=== PATIENT | female | born 1985 | race Caucasian/White ===

== ENCOUNTER 2016-11-12 20:20 | Emergency (ER) | payer MEDICAID ==
--- NOTE | 2016-11-12 20:47 | ERNOTE ---
Lower Extremity HPI - Narrative Date of Service: 11/12/16 - General Lower Extremities Pain: foot: right Time Seen by Provider: 11/12/16 20:26 Source: patient Exam Limitations: no limitations - Immun/Allergies/Home Medications Allergies/Adverse Reactions: Allergies Allergy/AdvReac Type Severity Reaction Status Date / Time Cephalosporins Allergy Severe Hives Verified 09/25/16 13:00 Penicillins Allergy Severe Hives Verified 09/25/16 13:00 Home Medications: HOME MEDICATIONS Albuterol Sulfate [Ventolin Hfa] 2 puff IH Q4H PRN 03/22/14 [Last Taken Unknown] Loratadine [Loratadine (Claritin)] 10 mg PO DAILY 03/22/14 [Last Taken Unknown] Montelukast Sodium [Singulair] 10 mg PO DAILY 03/22/14 [Last Taken Unknown] Levothyroxine Sodium [Synthroid] 88 mcg PO DAILY 09/25/16 [Last Taken Unknown] Metformin HCl [Metformin HCl ER] 500 mg PO DAILY 09/25/16 [Last Taken Unknown] Naproxen [Naprosyn] 500 mg PO BID PRN #60 tab 09/25/16 [Last Taken Unknown] Sertraline HCl [Zoloft] 50 mg PO DAILY 09/25/16 [Last Taken Unknown] oxyCODONE HCL/ACETAMINOPHEN [Percocet 5 MG/325 MG] 1 tab PO QPM PRN #5 tab 11/12 [Last Taken Unknown] - History of Present Illness Narrative: Pt. comes in with c/o r lateral foot pain since three days ago when she stepped in a mole hole in her yard. Pt. has been rona wrapping foot, and using Ibuprofen and naproxen for pain without relief. pt. denies any numbness or tingling Review of Systems - Review of Systems Constitutional: Present: no symptoms reported. Absent: recent illness, fever, chills, malaise EYE: Present: no symptoms reported ENT: Present: no symptoms reported Respiratory: Present: no symptoms reported Cardiology: Present: no symptoms reported Gastrointestinal/Abdominal: Present: no symptoms reported Genitourinary: Present: no symptoms reported Musculoskeletal: Present: no symptoms reported Skin: Present: no symptoms reported Neurological: Present: no symptoms reported. Absent: headache, dizziness/light- headedness, numbness, tingling All Other Systems: All systems neg except as marked - Patient's Past Medical History Patient History - Medical: Anemia, Anxiety, Depression, Kidney stone, UTI'S Patient History - Cancer: No Hx of Cancer Patient History - Surgical Procedures: Cholecystectomy, Tubal Ligation, T & A, Other - Social History Living Situations: alone Physical Exam - Physical Exam General Appearance: Present: wd/wn, alert, no apparent distress Eye Exam: Normal inspection: bilateral, PERRL: bilateral, EOMI: bilateral Ears, Nose, Throat: Present: normal ENT inspection, hearing grossly normal, normal pharynx Neck: Present: normal inspection, nontender. Absent: lymphadenopathy (R), lymphadenopathy (L) Respiratory: Present: no respiratory distress, normal breath sounds, no accessory muscle use, chest nontender, lungs clear Cardiovascular/Chest: Present: regular rate, rhythm, no murmur, normal peripheral pulses Gastrointestinal/Abdominal: Present: normal bowel sounds, nontender, nondistended, soft, no organomegaly Back Exam: Present: normal inspection, normal range of motion, no CVA tenderness , no vertebral tenderness Extremity Exam: Present: other - lateral foot tenderness Neurological Exam: Present: alert, oriented, normal mood/affect, no motor/ sensory deficits, 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 Absent: pallor, skin rash ED Progress - Vital Signs Patient's Vital Signs:: I have reviewed the patient's vital signs. Vital Signs: Vital Signs 11/12/16 20:25 Temperature 36.8 C Pulse Rate 109 H Respiratory 16 Rate Blood Pressure 135/96 O2 Sat by Pulse 97 Oximetry - Progress/Reassessment Chief Complaint: Lower Extremity Pain/ Injury Departure Clinical Impression: Right foot sprain Qualifiers: Encounter type: initial encounter Qualified Code(s): S93.601A - Unspecified sprain of right foot, initial encounter - Departure Disposition: Home self-care Condition: Good Instructions: Foot Sprain Additional Instructions: Please keep rona wrapped for two weeks, may remove for showers, please keep elevated as much as possible. No walking without crutches for two weeks may occasionally move ankle but do not drive using this foot. After two weeks if not improved please follow up with Dr Potter to evaluate for tear. No narcotic pain medications while you are driving or taking care of kids. Please continue anti-inflammatories during the daytime. Referrals: Eliot Osorio MD [Primary Care Provider] - Prescriptions: oxyCODONE HCL/ACETAMINOPHEN [Percocet 5 MG/325 MG] 1 tab PO QPM PRN #5 tab PRN Reason: Pain
[2016-11-12] MEDS ORDERED: oxyCODONE HCL/ACETAMINOPHEN 1 TAB TABLET PO ONE (21:30)
[2016-11-12] MEDS ORDERED: oxyCODONE HCL/ACETAMINOPHEN 1 TAB TABLET ONE (21:51)
[2016-11-12 22:17] VITALS: BP 138/88
== END 2016-11-12 21:50 | disposition home or self-care (01) ==
LOC: ER 20:20
DX: S93.601A Unspecified sprain of right foot, initial encounter (principal); W17.2XXA Fall into hole, initial encounter; Y92.007 Garden or yard of unspecified non-institutional (private) residence as the place of occurrence of the external cause; Z87.440 Personal history of urinary (tract) infections; Z87.442 Personal history of urinary calculi; F41.9 Anxiety disorder, unspecified

== ENCOUNTER 2017-02-11 14:05 | Emergency (ER) | payer MEDICAID ==
[2017-02-11 15:19] LABS: Urine Bilirubin Negative (NEGATIVE); Urine Blood 250 /ul (NEGATIVE); Urine Ketone Negative (NEGATIVE); Urine Nitrite Negative (NEGATIVE); Urine Protein Negative (NEGATIVE); Urine Urobilinogen Normal (NORMAL)
[2017-02-11 15:20] LABS: Urine Appearance Clear; Urine Bacteria None Seen; Urine Color Yellow; Urine WBC None Seen /hpf (0-5)
[2017-02-11] MEDS ORDERED: KETOROLAC TROMETHAMINE 60 MG/2 ML VIAL IM ONE ×2 (16:57→17:16)
--- NOTE | 2017-02-11 17:00 | ERNOTE ---
ER Female HPI Date of Service: 02/11/17 Stated Complaint: UTI Presenting Symptoms: other - Urinary frequency/urgency Time Seen by Provider: 02/11/17 16:42 Source: patient, RN notes reviewed Exam Limitations: no limitations Immunizations: IMMUNIZATION HX Immunizations Up to Date Yes History of Influenza Vaccine Yes Hx Pneumococcal Vaccination No Allergies/Adverse Reactions: Allergies Cephalosporins Allergy (Severe, Verified 09/25/16 13:00) Hives Penicillins Allergy (Severe, Verified 09/25/16 13:00) Hives Home Medications: HOME MEDICATIONS Albuterol Sulfate [Ventolin Hfa] 2 puff IH Q4H PRN 03/22/14 [Last Taken Unknown] Loratadine [Loratadine (Claritin)] 10 mg PO DAILY 03/22/14 [Last Taken Unknown] Montelukast Sodium [Singulair] 10 mg PO DAILY 03/22/14 [Last Taken Unknown] Levothyroxine Sodium [Synthroid] 88 mcg PO DAILY 09/25/16 [Last Taken Unknown] Sertraline HCl [Zoloft] 50 mg PO DAILY 09/25/16 [Last Taken Unknown] metFORMIN HCL [Metformin HCl ER] 500 mg PO DAILY 09/25/16 [Last Taken Unknown] HYDROcodone/ACETAMINOPHEN [Economy 5-325] 1 - 2 tab PO Q6H PRN #20 tab 02/11/17 [ Last Taken Unknown] Ondansetron [Zofran Odt] 8 mg PO Q8H PRN #12 tab 02/11/17 [Last Taken Unknown] Tamsulosin HCl [Flomax] 0.4 mg PO DAILY #14 cap.sr.24h 02/11/17 [Last Taken Unknown] - History of Present Illness Narrative: 31 y/o female ambulatory to the ED for urinary symptoms that have been ongoing for about a month. She was initially seen and treated for a UTI in the walk-in clinic. Her culture at that time grew greater than 3 organisms. Her symptoms continued and she saw her PCP. She was then treated for bacterial vaginitis with Flagyl. She reports urinary frequency and urgency. She has an appointment with urology last week. Onset Location: Present: suprapubic, urethral Radiation: Present: none Associated Symptoms: Present: fever/chills, nausea, urinary frequency, low back pain. Absent: vomiting, abdominal pain, dysuria Prior Treatment: Present: recently seen, treated by physician. Absent: currently on antibiotics Review of Systems - Review of Systems Constitutional: Present: See HPI EYE: Present: no symptoms reported ENT: Present: no symptoms reported Respiratory: Present: no symptoms reported Cardiology: Present: no symptoms reported Gastrointestinal/Abdominal: Present: See HPI Genitourinary: Present: frequency, pain, dysuria. Absent: hematuria, decreased urinary output, discharge, other - vaginal itching/irritation Musculoskeletal: Present: back pain, muscle pain Skin: Absent: rash, lesions Neurological: Absent: weakness, numbness, tingling Endocrine: Present: no symptoms reported Hematologic/Lymphatic: Present: no symptoms reported Psych: Present: no symptoms reported - Patient's Past Medical History Patient History - Medical: Anemia, Anxiety, Depression, Kidney stone, Obesity, UTI'S Patient History - Cardiac/Respiratory: Asthma Patient History - Cancer: No Hx of Cancer Patient History - Surgical Procedures: Cholecystectomy, Tubal Ligation, T & A, Other LMP (females 10-50): 1 month - Social History Living Situations: home Smoking Status: Current some day smoker Alcohol Use: none Drug Use: none - Immunizations Immunizations Up to Date: Yes Hx Pneumococcal Vaccination: No History of Influenza Vaccine: Yes Physical Exam - Physical Exam General Appearance: Present: alert, no apparent distress, obese Neck: Present: normal inspection, nontender, supple Respiratory: Present: no respiratory distress, normal breath sounds, no accessory muscle use, lungs clear Cardiovascular/Chest: Present: regular rate, rhythm, no murmur Gastrointestinal/Abdominal: Present: normal bowel sounds, nontender, soft, distended - obese Back Exam: Present: no vertebral tenderness, CVA tenderness (R). Absent: CVA tenderness (L) Extremity Exam: Present: normal inspection Neurological Exam: Present: alert, oriented, normal mood/affect, no motor/ sensory deficits Skin Exam: Present: normal color, warm/dry ED Progress - Results and Orders Patient's Lab Results:: I have reviewed the patient's lab results. - Vital Signs Patient's Vital Signs:: I have reviewed the patient's vital signs. Vital Signs: Vital Signs 02/11/17 14:24 Temperature 36.8 C Pulse Rate 94 Respiratory 12 Rate Blood Pressure 147/104 O2 Sat by Pulse 98 Oximetry - CT/Ultrasound CT/Ultrasound Narrative: CT abd/pelvis noncontrast: 1. PROMINENT RIGHT LOBE THE LIVER; SIMÓN'S LOBE VERSUS HEPATOMEGALY. 2. STATUS POST CHOLECYSTECTOMY. 3. NO EVIDENCE FOR NONOBSTRUCTING RENAL CALCULI. 4. MILD LEFT SIDED HYDRONEPHROSIS EXTENDING DOWN TO A 4.4 MM CALCULUS IN THE LEFT URETEROVESICULAR JUNCTION. Electronically signed by Bowen Salazar M.D.. - Progress/Reassessment Chief Complaint: Genitourinary Problem Progress:: Improved Plan - Plan Plan: Some improvement in pain with Toradol. Has f/u scheduled with urology next week but discussed being seen sooner if needed. Departure Clinical Impression: Ureteral calculus, left - Departure Disposition: Home Follow Up Needed Condition: Good Instructions: Kidney Stones, [id number] Additional Instructions: Push fluids Strain urine See urology as scheduled - or contact them if symptoms worsen or have not improved by Thursday Referrals: Abdifatah Cardoza MD [Associate] - Prescriptions: HYDROcodone/ACETAMINOPHEN [Economy 5-325] 1 - 2 tab PO Q6H PRN #20 tab PRN Reason: Pain Ondansetron [Zofran Odt] 8 mg PO Q8H PRN #12 tab PRN Reason: Nausea Tamsulosin HCl [Flomax] 0.4 mg PO DAILY #14 cap.sr.24h
[2017-02-11 18:25] VITALS: BP 126/87
== END 2017-02-11 19:18 | disposition home or self-care (01) ==
LOC: ER 14:05
DX: N20.1 Calculus of ureter (principal); Z87.442 Personal history of urinary calculi; Z72.0 Tobacco use; F41.8 Other specified anxiety disorders

== ENCOUNTER 2017-05-14 12:10 | Emergency (ER) | payer MEDICAID ==
[2017-05-14] MEDS ORDERED: KETOROLAC TROMETHAMINE 60 MG/2 ML VIAL IM ONE ×2 (13:02→13:11)
[2017-05-14] MEDS ORDERED: ORPHENADRINE CITRATE 30 MG/ML VIAL IM ONE (13:02)
[2017-05-14] MEDS ORDERED: ORPHENADRINE CITRATE 30 MG/ML VIAL ONE (13:11)
--- NOTE | 2017-05-14 13:12 | ERNOTE ---
Back Pain ER HPI Date of Service: 05/14/17 Presenting Symptoms: injury/pain to back, hx chronic back pain Time Seen by Provider: 05/14/17 12:53 Source: patient Exam Limitations: no limitations Immunizations: IMMUNIZATION HX Immunizations Up to Date Yes History of Influenza Vaccine No Hx Pneumococcal Vaccination No Allergies/Adverse Reactions: Allergies Cephalosporins Allergy (Severe, Verified 05/14/17 12:29) Hives Penicillins Allergy (Severe, Verified 05/14/17 12:29) Hives Home Medications: HOME MEDICATIONS Albuterol Sulfate [Ventolin Hfa] 2 puff IH Q4H PRN 03/22/14 [Last Taken Unknown] Loratadine [Loratadine (Claritin)] 10 mg PO DAILY 03/22/14 [Last Taken Unknown] Montelukast Sodium [Singulair] 10 mg PO DAILY 03/22/14 [Last Taken Unknown] Levothyroxine Sodium [Synthroid] 88 mcg PO DAILY 09/25/16 [Last Taken Unknown] Sertraline HCl [Zoloft] 50 mg PO DAILY 09/25/16 [Last Taken Unknown] metFORMIN HCL [Metformin HCl ER] 500 mg PO DAILY 09/25/16 [Last Taken Unknown] HYDROcodone/ACETAMINOPHEN [Elizabeth 5-325] 1 - 2 tab PO Q6H PRN #20 tab 02/11/17 [ Last Taken Unknown] Ondansetron [Zofran Odt] 8 mg PO Q8H PRN #12 tab 02/11/17 [Last Taken Unknown] Tamsulosin HCl [Flomax] 0.4 mg PO DAILY #14 cap.sr.24h 02/11/17 [Last Taken Unknown] Cyclobenzaprine HCl [Flexeril] 10 mg PO TID PRN #30 tab 05/14/17 [Last Taken Unknown] Naproxen [Naprosyn] 500 mg PO BID PRN #60 tab 05/14/17 [Last Taken Unknown] Narrative: Pt. 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 Pt. denies any SOB, CP, NVD, fever, recent illness, alleviating factors, or prehospital treatment. Pt. states ath movement exacerbates felicia pain and she has had similar symptoms in the past when she was diagnosed with a bulging disc. Review of Systems - Review of Systems Constitutional: Present: no symptoms reported. Absent: recent illness, fever, chills, weakness, fatigue, malaise EYE: Present: no symptoms reported ENT: Present: no symptoms reported Respiratory: Present: no symptoms reported. Absent: shortness of breath, cough , wheezing Cardiology: Present: no symptoms reported. Absent: chest pain, palpitations, edema Gastrointestinal/Abdominal: Present: no symptoms reported Genitourinary: Present: no symptoms reported Musculoskeletal: Present: back pain. Absent: joint pain Skin: Present: no symptoms reported. Absent: rash, change in color Neurological: Present: no symptoms reported. Absent: headache, dizziness/light- headedness, weakness, numbness All Other Systems: All systems neg except as marked - Patient's Past Medical History Patient History - Medical: Anemia, Anxiety, Depression, Kidney stone, Obesity, UTI'S Patient History - Cardiac/Respiratory: Asthma Patient History - Cancer: No Hx of Cancer Patient History - Surgical Procedures: Cholecystectomy, Tubal Ligation, T & A, Other Patient History - Other: None LMP (females 10-50): 3 weeks - Social History Living Situations: home Psych History: Hx of Anxiety, Hx of Depression Smoking Status: Current some day smoker Alcohol Use: none Drug Use: none - Immunizations Immunizations Up to Date: Yes Hx Pneumococcal Vaccination: No History of Influenza Vaccine: No Physical Exam - Physical Exam General Appearance: Present: wd/wn, alert, no apparent distress Eye Exam: Normal inspection: bilateral, PERRL: bilateral, EOMI: bilateral Neck: Present: normal inspection, nontender, full range of motion. 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 Absent: pallor, skin rash ED Progress - Vital Signs Patient's Vital Signs:: I have reviewed the patient's vital signs. Vital Signs: Vital Signs 05/14/17 12:26 Temperature 36.8 C Pulse Rate 90 Respiratory 16 Rate Blood Pressure 129/80 O2 Sat by Pulse 100 Oximetry - X-Ray X-Ray #1 X-Ray: thoracic Interpretation: Interp. by me X-ray Comments: multilevel DDD with endplate spurring X-Ray #2 X-Ray: lumbosacral Interpretation: Interp. by me X-ray Comments: multilevel DDD with endplate spurring - Progress/Reassessment Chief Complaint: Back Pain Departure Clinical Impression: Thoracolumbar back pain Degenerative disc disease Qualifiers: Spinal region: thoracolumbar Qualified Code(s): M51.35 - Other intervertebral disc degeneration, thoracolumbar region - Departure Disposition: Home self-care Condition: Good Instructions: Thoracic Strain, [id number], Back Pain, Adult, Back Injury Prevention Additional Instructions: Please follow up with primary provider in 2-3 days as you likely need further imaging and possibly injections. Also may see chiropractor. Please rest and use heat on back and take mediactions as prescribed. Prescriptions: Cyclobenzaprine HCl [Flexeril] 10 mg PO TID PRN #30 tab PRN Reason: MUSCLE SPASMS Naproxen [Naprosyn] 500 mg PO BID PRN #60 tab PRN Reason: Pain
[2017-05-14 15:29] VITALS: BP 128/71
== END 2017-05-14 14:21 | disposition home or self-care (01) ==
LOC: ER 12:10
DX: M51.35 Other intervertebral disc degeneration, thoracolumbar region (principal); F17.200 Nicotine dependence, unspecified, uncomplicated; X50.1XXA Overexertion from prolonged static or awkward postures, initial encounter

== ENCOUNTER 2017-05-30 18:38 | Emergency (ER) | payer MEDICAID ==
--- OUTSIDE RECORDS SUMMARY | 2017-05-30 18:58 | XMS REPORT | Summary of Care ---
:1985 Author Organization [facility] Care Team Providers Name Role Phone Eliot Osorio Primary Care Physician Encounter Date(s): 02/13/17 - 02/13/17 [facility] [address] [place], [place] [id number] Discharge Disposition: Discharged to Home or Self Care Attending Physician: Abdifatah Cardoza MD Admitting Physician: Abdifatah Cardoza MD Vital Signs No data available for this section Problem List Condition Effective Dates Status Health Status Informant Nephrolithiasis(Confirmed) Active Allergies, Adverse Reactions, Alerts Substance Reaction Severity Status cephalosporins hives Active penicillins hives Active Medications albuterol HFA puff(s), Inhale, QID, 0 Refill(s), Start Date: 10/21/16 8:34:00 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 Start Date: 10/21/16 Status: Orderedlevothyroxine 88 mcg (0.088 mg) oral tablet 1 tab(s), Oral, Daily, # 30 tab(s), 0 Refill(s), Start Date: 10/21/16 8:35:00 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 Start Date: 10/21/16 Status: Orderedloratadine 10 mg oral tablet 1 tab(s), Oral, Daily, # 30 tab(s), 0 Refill(s), Start Date: 10/21/16 8:34:00 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 Start Date: 10/21/16 Status: OrderedmetFORMIN 500 mg oral tablet 1 tab(s), Oral, BID, # 60 tab(s), 0 Refill(s), Start Date: 10/21/16 8:35:00 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 Start Date: 10/21/16 Status: Orderedmontelukast 10 mg oral tablet 1 tab(s), Oral, qPM, # 30 tab(s), 0 Refill(s), Start Date: 10/21/16 8:34:00 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 Start Date: 10/21/16 Status: Orderednaproxen 500 mg oral tablet 1 tab(s), Oral, BID, # 60 tab(s), 0 Refill(s), Start Date: 10/21/16 8:35:00 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 Start Date: 10/21/16 Status: Orderedsertraline 50 mg oral tablet 1 tab(s), Oral, Daily, # 30 tab(s), 0 Refill(s), Start Date: 10/21/16 8:35:00 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
--- NOTE | 2017-05-30 19:07 | ERNOTE ---
Medical Problem HPI - Narrative Date of Service: 05/30/17 - General Chief Complaint: Neck Pain/Injury Time Seen by Provider: 05/30/17 18:49 Source: patient, RN notes reviewed Exam Limitations: no limitations - Immun/Allergies/Home Medications Immunizations: IMMUNIZATION HX Immunizations Up to Date Yes History of Influenza Vaccine Yes Hx Pneumococcal Vaccination No Allergies/Adverse Reactions: Allergies Cephalosporins Allergy (Severe, Verified 05/14/17 12:29) Hives Penicillins Allergy (Severe, Verified 05/14/17 12:29) Hives Home Medications: HOME MEDICATIONS Albuterol Sulfate [Ventolin Hfa] 2 puff IH Q4H PRN 03/22/14 [Last Taken Unknown] Loratadine [Loratadine (Claritin)] 10 mg PO DAILY 03/22/14 [Last Taken Unknown] Levothyroxine Sodium [Synthroid] 88 mcg PO DAILY 09/25/16 [Last Taken Unknown] Sertraline HCl [Zoloft] 50 mg PO DAILY 09/25/16 [Last Taken Unknown] metFORMIN HCL [Metformin HCl ER] 500 mg PO DAILY 09/25/16 [Last Taken Unknown] Cyclobenzaprine HCl [Flexeril] 10 mg PO TID PRN #30 tab 05/14/17 [Last Taken Unknown] Naproxen [Naprosyn] 500 mg PO BID PRN #60 tab 05/14/17 [Last Taken Unknown] Clindamycin HCl [Cleocin HCl] 300 mg PO QID #40 capsule 05/30/17 [Last Taken Unknown] - History of Present History Narrative: Arti is a 32-year-old female who presents to the emergency Department for a painful lump in the left side of her neck. She first noticed this 2 days ago. She has been using a heating pad without relief. She has been not been taking anything for pain, but reports the pain now spread up to her ear and down into her shoulder. She denies any sore throat. She denies any sick contacts. Review of Systems - Review of Systems Constitutional: Absent: recent illness, fever, chills EYE: Absent: eye pain, eye discharge ENT: Absent: ear pain, nose congestion, sore throat, throat swelling Respiratory: Absent: shortness of breath, cough Cardiology: Present: no symptoms reported Gastrointestinal/Abdominal: Absent: nausea, vomiting Genitourinary: Present: no symptoms reported Musculoskeletal: Present: neck pain. Absent: muscle stiffness, joint pain, joint swelling Skin: Present: lumps. Absent: rash, lesions, change in color Neurological: Absent: headache, weakness, numbness, tingling Endocrine: Present: no symptoms reported Hematologic/Lymphatic: Present: no symptoms reported Psych: Present: no symptoms reported - Patient's Past Medical History Patient History - Medical: Anemia, Anxiety, Depression, Kidney stone, Obesity, UTI'S Patient History - Cardiac/Respiratory: Asthma Patient History - Cancer: No Hx of Cancer Patient History - Surgical Procedures: Cholecystectomy, Tubal Ligation, T & A, Other Patient History - Other: None LMP (Calendar): 05/28/17 - Social History Living Situations: home Abuse History: No History of abuse Psych History: Hx of Anxiety, Hx of Depression Smoking Status: Current some day smoker Alcohol Use: none Drug Use: none - Immunizations Immunizations Up to Date: Yes Hx Pneumococcal Vaccination: No History of Influenza Vaccine: Yes Physical Exam - Physical Exam General Appearance: Present: wd/wn, alert, no apparent distress, obese, other - Disheveled appearance Head Exam: Present: normal inspection, no evidence of injury Eye Exam: Normal inspection: bilateral Ears, Nose, Throat: Present: pharyngeal erythema - mild. Absent: abnormal TM (R ), abnormal TM (L), nasal congestion, sinus pain/drainage, pharyngeal swelling Neck: Present: supple, full range of motion, lymphadenopathy (L) - single enlarged node in lateral chain, tender lateral - left. Absent: lymphadenopathy (R), thyromegaly Respiratory: Present: no respiratory distress, normal breath sounds, no accessory muscle use, lungs clear Cardiovascular/Chest: Present: regular rate, rhythm, no murmur Extremity Exam: Present: normal inspection, normal range of motion Neurological Exam: Present: alert, oriented, normal mood/affect, no motor/ sensory deficits Skin Exam: Present: normal color, warm/dry ED Progress - Results and Orders Patient's Lab Results:: I have reviewed the patient's lab results. - Vital Signs Patient's Vital Signs:: I have reviewed the patient's vital signs. Vital Signs: Vital Signs 05/30/17 18:42 Temperature 36.4 C L Pulse Rate 101 H Respiratory 18 Rate Blood Pressure 144/95 O2 Sat by Pulse 97 Oximetry - Progress/Reassessment Chief Complaint: Neck Pain/Injury Progress:: Unchanged Plan - Plan Plan: WBC slightly elevated. Will treat as lymphadenitis with clindamycin (allergic to PCN and cephalosporins). To f/u with PCP if no improvement with antibiotic. Patient in agreement with plan. Departure - Departure Clinical Impression: Lymphadenitis, acute Disposition: Home Follow Up Needed Condition: Good Instructions: Lymphadenopathy Additional Instructions: Tylenol and/or ibuprofen for pain Heat to sore area Take a probiotic (Culturelle is a good one) while on the antibiotic Follow up with your doctor if symptoms persist despite treatment Referrals: Eliot Osorio MD [Primary Care Provider] - Prescriptions: Clindamycin HCl [Cleocin HCl] 300 mg PO QID #40 capsule
[2017-05-30 19:09] LABS: Hematocrit 37.3 % (37.0-47.0); Hemoglobin 12.5 gm/dL (12.5-16.0); Mean Cell Volume 81.4 fl (78-100); Mean Corpuscular Hemoglobin 27.3 pg (27-31); Mean Corpuscular Hgb Conc 33.5 g/dl (32-36); Mean Platelet Volume 9.7 fl (6.0-9.5); Neutrophil # 7.3 K/mm3 (1.3-6.0); Neutrophil % 65.5 % (42-75.0); Platelet Count 307 K/mm3 (150-450); Red Blood Count 4.58 M/mm3 (4.2-5.4); Red Cell Distribution Width 13.7 % (11.5-14.0); White Blood Count 11.2 K/mm3 (4.0-10.5)
[2017-05-30] MEDS ORDERED: CLINDAMYCIN HCL 150 MG CAPSULE PO ONE (20:11)
[2017-05-30] MEDS ORDERED: CLINDAMYCIN HCL 150 MG CAPSULE ONE (20:17)
[2017-05-30 20:21] VITALS: BP 123/80
== END 2017-05-30 20:22 | disposition home or self-care (01) ==
LOC: ER 18:38
DX: I88.9 Nonspecific lymphadenitis, unspecified (principal); D64.9 Anemia, unspecified; F41.8 Other specified anxiety disorders; Z72.0 Tobacco use